=== PATIENT | female | born 1990 | race Caucasian/White ===

== ENCOUNTER → 2019-06-21 | Outpatient (CLI) | payer MEDICAID | END | disposition home or self-care (01) | LOC: XY 07:43 | PROVIDERS: ATTEND Internal Medicine | DX: R00.2 Palpitations (principal); R06.02 Shortness of breath; R07.9 Chest pain, unspecified | CPT/HCPCS: 78582; A9540; A9558 ==

== ENCOUNTER → 2019-08-06 | Outpatient (CLI) | payer MEDICAID ==
[~2019-08-06] MED LIST: ALBUAER3 IN; ALPR1TAB7 PO; BECL80AE11 IN; FURO1TAB33 PO; GABA300C10 PO; METO25TA62 PO; MIRT30TA PO; OMEP20TA PO; SERT-377 PO
[2019-08-06 15:06] VITALS: BP 102/59
[2019-08-06 15:18] VITALS: BP 96/58
--- NOTE | 2019-08-06 15:18 | NUR ---
Pre-Op Discharge Summary: See e-MAR for any medications given for this visit. Pre-op orders received and carried out per MD of EKG, LABS and chest xrays. Patient given a copy of EKG with instructions to go to [facility] out patient for further follow up care.
[2019-08-06 16:29] LABS: Basophils # (auto) 0 uL; Basophils % (auto) 0.5 % (0.0-2.0); Eosinophils # (auto) 0.2 uL; Eosinophils % (auto) 1.9 % (0.0-7.0); Hematocrit 44.4 % (36.0-46.0); Hemoglobin 14.9 g/dL (12.2-16.2); Lymphocytes # (auto) 2.4 uL; Lymphocytes % (auto) 28.2 % (10.0-50.0); Mean Corpuscular Hemoglobin 29.8 pg (28.0-32.0); Mean Corpuscular Hgb Conc. 33.6 g/dL (32.0-36.0); Mean Corpuscular Volume 88.8 fL (80.0-100.0); Monocytes # (auto) 0.6 uL; Monocytes % (auto) 7.3 % (0.0-12.0); Neutrophils # (auto) 5.2 uL; Neutrophils % (auto) 62.1 % (37.0-80.0); Platelet Count (auto) 258 10^3/uL (140-450); Red Cell Distribution Width 13.6 % (11.8-14.3); White Blood Cell 8.4 10^3/uL (4.4-10.8)
[2019-08-06 16:40] LABS: INR 1.02 (0.9-1.15); Partial Thromboplastin Time 27.1 sec (23.64-32.05)
[2019-08-06 17:27] LABS: BUN/Creatinine Ratio 17.3; Calcium 9.1 mg/dL (8.5-10.1); Potassium 4.1 mmol/L (3.5-5.1)
== END | disposition home or self-care (01) ==
LOC: Rad HDHVI 14:52
PROVIDERS: ATTEND Internal Medicine
DX: Z01.812 Encounter for preprocedural laboratory examination (principal); F17.200 Nicotine dependence, unspecified, uncomplicated
CPT/HCPCS: 36415; 71046; 80048; 84702; 85025; 85610; 85730; 93005; G0463

== ENCOUNTER 2019-08-11 08:09 | Inpatient (IN) | payer MEDICAID ==
[~2019-08-11] VITALS: Ht 149.9 cm; Wt 64.3 kg
[2019-08-11] MEDS ORDERED: IOHEXOL 350 MG/ML 100ML IJ ONE ×2 (08:25→08:58)
[2019-08-11] MEDS ORDERED: LIDOCAINE 2%HCL (LOCAL ANESTH.) INJ 20ML MDV ONE (08:25)
[2019-08-11] MEDS ORDERED: ANGIOMAX 250 MG VIAL IV ONE (08:57)
[2019-08-11] MEDS ORDERED: fentaNYL CITRATE 100 MCG/2 ML VL ONE (08:57)
[2019-08-11] MEDS ORDERED: SODIUM CHL 0.9% 0 ML ONE (08:58)
[2019-08-11] MEDS ORDERED: MIDAZOLAM HCL 1MG/1ML-2 ML VIAL ONE ×2 (08:58→09:33)
[2019-08-11] MEDS ORDERED: MIDAZOLAM HCL 1MG/1ML-2 ML VIAL IV ONE (12:00)
[2019-08-11] MEDS ORDERED: LIDOCAINE VISCOUS 2% 15ML UD PO ONE (12:00)
[2019-08-11] MEDS ORDERED: fentaNYL CITRATE 100 MCG/2 ML VL IV ONE (12:00)
[2019-08-11] MEDS ORDERED: MORPHINE SULF INJ 2 MG/ML SYRINGE 1ML IV PRN (16:00)
[2019-08-11] MEDS ORDERED: ONDANSETRON HCL 4 MG/2 ML VIAL IV PRN (16:00)
[2019-08-11] MEDS ORDERED: NITROGLYCERIN 0.4 MG SL TAB SL PRN (16:00)
[2019-08-11] MEDS ORDERED: ACETAMINOPHEN 500 MG TAB PO PRN (16:00)
[2019-08-11] MEDS ORDERED: ALPRAZolam 0.5 MG TAB PO PRN (16:15)
[2019-08-11] MEDS: HYDROcodone-ACET 5/325MG TAB PO PRN ×2 (16:55→20:55)
--- NOTE | 2019-08-11 17:36 | NUR ---
received report from MICHAEL Luong in concrete plant laborer pt s/p left heart cath for transfer to [facility] due to ASD, Kristen is the manager of case management.
--- NOTE | 2019-08-11 17:50 | NUR ---
Telemetry admit from ER MORRISSYDNEY VENEGAS admitted to Telemetry unit after SBAR received. Patient oriented to Manda Valdez, primary RN, unit, room, bed, and unit policies regarding patient care and visiting hours. Patient now on continuous telemetry monitoring, tele box # 67 and telemetry reading on arrival to unit is SINUS TACHYCARDIA AT 103BPM. Patient placed on bedside oxygen, weighed by bedscale and encouraged to call if they need something. All questions and concerns addressed, patient verbalized understanding. Note: PT IS AWAKE AND ALERT, NOTED POST OP DRESSING ON RIGHT GROIN, CLEAN DRY AND INTACT, NO SIGNS OF BLEEDING, NO SIGNS OF DISTRESS AT THIS TIME.WILL CONTINUE TO MONITOR.
[2019-08-11] MEDS ORDERED: ALBUTEROL SULF 2.5 MG/0.5ML(0.5%) NEB SOLN NEB PRN (18:00)
[2019-08-11 18:15] VITALS: BP 107/86
--- NOTE | 2019-08-11 19:35 | NUR ---
Opening Shift Note Assumed care of patient, awake and alert. No S/S of distress/SOB. Patient c/o generalized body pain. Will treat with PRN pain medication. Instructed on POC and to call for assist PRN, will continue to monitor for changes Q1hr and PRN.
[2019-08-11 22:00] VITALS: BP 99/62
[2019-08-11] MEDS ORDERED: BECLOMETHASONE DIPROPIONATE 80 MCG IN SCH (22:00)
[2019-08-11] MEDS: BUDESONIDE (INHALATION) 0.5 MG/2 ML NEB NEB SCH (22:26)
[2019-08-11 22:29] VITALS: BP 107/86
[2019-08-11] MEDS: GABAPENTIN 300 MG CAP PO SCH (23:17)
[2019-08-11] MEDS: SODIUM CHLOR 0.9% PF (SALINE LOCK) 10ML VIAL/SYR IV SCH (23:17)
[2019-08-12 05:00] VITALS: BP 101/57
[2019-08-12] MEDS: SODIUM CHLOR 0.9% PF (SALINE LOCK) 10ML VIAL/SYR IV SCH ×3 (06:37→23:18)
[2019-08-12] MEDS: GABAPENTIN 300 MG CAP PO SCH ×3 (06:37→23:18)
--- NOTE | 2019-08-12 07:30 | NUR ---
Opening Shift Note RECEIVED REPORT FROM NOC RN. Assumed care of patient, awake and alert. No S/S of distress/SOB or pain. BED IN LOWEST, LOCKED POSITION WITH SIDERAILS UP x2 AND CALL LIGHT WITHIN REACH. Instructed on POC and to call for assist PRN, will continue to monitor for changes Q1hr and PRN.
[2019-08-12 08:00] VITALS: BP 102/52
--- NOTE | 2019-08-12 08:16 | NUR ---
Crnp 08/11/19-I received a page from Cherise in the laborer heading regarding order to transfer this patient to [facility]. I spoke with nurse Manda who would be receiving the patient and asked her to fax clinical information to [facility].
--- NOTE | 2019-08-12 08:24 | NUR ---
I faxed transfer order to [facility] and IE.
--- NOTE | 2019-08-12 08:47 | NUR ---
I called [facility] and spoke with Payment Processor Jazmyn [phone] regarding the transfer order, she will generate the authorization numbers and give me a call back.
--- NOTE | 2019-08-12 08:56 | NUR ---
I received a call from Margie at [facility] providing me with authorization numbers-for [facility] auth number is [id number], and auth for [facility] is [id number]. I called [facility] transfer center [phone] and spoke with Shawna-provided her with [facility] auth number, they have accepted this patient-she will call me when a bed becomes available. I spoke with patient's primary nurse Anival to update him on the status of the transfer-as well as to ask him to make sure the chart is copied and everything placed on a disc including yesterday's LHC.
--- NOTE | 2019-08-12 09:06 | NUR ---
I placed [facility] on will call (spoke with Natividad) pending transfer to [facility].
[2019-08-12] MEDS: MIRTAZAPINE 30 MG TAB PO SCH (09:57)
[2019-08-12] MEDS: FUROSEMIDE 20 MG TAB PO SCH (09:58)
[2019-08-12] MEDS: SERTRALINE HCL 50 MG TAB PO SCH (09:58)
[2019-08-12] MEDS: PANTOPRAZOLE 40 MG TAB PO SCH (09:58)
[2019-08-12] MEDS: METOPROLOL SUCCINATE XL 50 MG TAB PO SCH (09:59)
[2019-08-12 12:00] VITALS: BP 107/61
[2019-08-12] MEDS: HYDROcodone-ACET 5/325MG TAB PO PRN ×2 (13:19→19:22)
--- NOTE | 2019-08-12 15:58 | NUR ---
I called [facility] transfer center [phone] and spoke with Shawna-she said they are still waiting on a bed for this patient-they will call the nurse's station when one becomes available. [facility] is on will-call.
[2019-08-12 16:45] VITALS: BP 106/63
[2019-08-12 22:00] VITALS: BP 108/65
[2019-08-12] MEDS: BUDESONIDE (INHALATION) 0.5 MG/2 ML NEB NEB SCH (22:13)
[2019-08-13 05:00] VITALS: BP 116/61
[2019-08-13] MEDS: HYDROcodone-ACET 5/325MG TAB PO PRN ×3 (06:39→22:14)
[2019-08-13] MEDS: SODIUM CHLOR 0.9% PF (SALINE LOCK) 10ML VIAL/SYR IV SCH ×3 (06:39→22:14)
[2019-08-13] MEDS: GABAPENTIN 300 MG CAP PO SCH ×3 (06:39→22:14)
--- NOTE | 2019-08-13 07:30 | NUR ---
Opening Shift Note RECEIVED REPORT FROM NOC RN. Assumed care of patient, awake and alert. PATIENT ON OXYGEN AT 3 LPM VIA NASAL CANNULA WITH no S/S of distress/SOB or pain. BED IN LOWEST, LOCKED POSITION WITH SIDERAILS UP x2 AND CALL LIGHT WITHIN REACH. Instructed on POC and to call for assist PRN, will continue to monitor for changes Q1hr and PRN.
[2019-08-13 09:00] VITALS: BP 95/56
[2019-08-13] MEDS: MIRTAZAPINE 30 MG TAB PO SCH (09:46)
[2019-08-13] MEDS: SERTRALINE HCL 50 MG TAB PO SCH (09:46)
[2019-08-13] MEDS: PANTOPRAZOLE 40 MG TAB PO SCH (09:47)
[2019-08-13] MEDS: FUROSEMIDE 20 MG TAB PO SCH (09:47)
[2019-08-13] MEDS: METOPROLOL SUCCINATE XL 50 MG TAB PO SCH (09:51)
--- NOTE | 2019-08-13 10:02 | NUR ---
I spoke with Shawna at the [facility] transfer center [phone]-she said they are still waiting for a bed to open up for this patient.
[2019-08-13] MEDS: BUDESONIDE (INHALATION) 0.5 MG/2 ML NEB NEB SCH ×2 (11:07→19:20)
[2019-08-13 13:00] VITALS: BP 111/59
--- NOTE | 2019-08-13 16:47 | NUR ---
I called [facility] transfer center [phone] and spoke with Shawna, she said they are still waiting for a bed to become available for this patient. [facility] remains on will call (I called and spoke with Sina).
[2019-08-13 17:00] VITALS: BP 101/60
--- NOTE | 2019-08-13 20:50 | NUR ---
Called [facility], SBAR given to Aaliyah RODRIGUEZ. All questions and concerns answered.
--- NOTE | 2019-08-13 21:00 | NUR ---
Called [facility], accepting MD is Dr. Bond.
[2019-08-13 21:08] VITALS: BP 119/69
--- NOTE | 2019-08-13 21:21 | NUR ---
[facility] called and all information given. ETA is in 2 hours. Patient is aware of order picker/assembler time.
--- NOTE | 2019-08-13 23:50 | NUR ---
[facility] is at bedside for transfer. production administrator removed. All wrist bands removed. All paperwork and belongings are with the patient. VSS. No complaints of pain.
--- NOTE | 2019-08-13 23:59 | NUR ---
Discharge Transfers Patient is being transferred to [facility]. Patient is to follow up with accepting doctor Varun at the receiving facility.
== END 2019-08-13 23:58 | disposition short-term general hospital (02) | DRG 192 ==
LOC: CATH 08:09 → TELE-WESTW 08:10
PROVIDERS: ADMIT Internal Medicine; ATTEND Internal Medicine
PROC: 4A023N8 Measurement of Cardiac Sampling and Pressure, Bilateral, Percutaneous Approach (ICD-10-PCS; principal; 2019-08-11)
PROC: B2111ZZ Fluoroscopy of Multiple Coronary Arteries using Low Osmolar Contrast (ICD-10-PCS; 2019-08-11)
PROC: B2151ZZ Fluoroscopy of Left Heart using Low Osmolar Contrast (ICD-10-PCS; 2019-08-11)
DX: I27.21 Secondary pulmonary arterial hypertension (principal); I11.0 Hypertensive heart disease with heart failure; I50.9 Heart failure, unspecified; Q21.1 Atrial septal defect; J45.909 Unspecified asthma, uncomplicated; F41.9 Anxiety disorder, unspecified; F17.210 Nicotine dependence, cigarettes, uncomplicated
CPT/HCPCS: 93306; 93460; 94640; 99152; 99153; C1751; G0378; J2250

== ENCOUNTER 2020-07-01 09:12 | Inpatient (IN) | payer MEDICARE, MEDICAID ==
[~2020-07-01] VITALS: Ht 149.9 cm; Wt 53.6 kg
[~2020-07-01 09:12] MED LIST changes: -METO25TA62 PO; +METO25TA93 PO
[2020-07-01 10:32] LABS: Urine Bacteria FEW /hpf (None Seen); Urine Blood Negative /uL (Negative); Urine Mucus FEW (None Seen); Urine Specific Gravity 1.016 (1.001-1.035); Urine WBC 7 /hpf (0 - 5)
[2020-07-01] MEDS ORDERED: SODIUM CHLORIDE 0.9% 1,000 ML IVB ONE (13:00)
[2020-07-01] MEDS ORDERED: cefTRIAXone 1GM/50ML D5W 50 ML IV ONE (13:00)
[2020-07-01 13:37] LABS: Basophils % (auto) 0.4 % (0.0-2.0); Eosinophils # (auto) 0 10 ^3/uL (0-0.8); Monocytes # (auto) 0.7 10 ^3/uL (0-1.3); Red Cell Distribution Width 15.3 % (11.8-14.3)
[2020-07-01 13:39] LABS: Basophils # (auto) 0.1 10 ^3/uL (0-0.2); Eosinophils % (auto) 0.1 % (0.0-7.0); Hematocrit 53.4 % (36.0-46.0); Hemoglobin 17.7 g/dL (12.2-16.2); Lymphocytes # (auto) 1.2 10 ^3/uL (0.4-5.4); Lymphocytes % (auto) 9.2 % (10.0-50.0); Mean Corpuscular Hemoglobin 30.2 pg (28.0-32.0); Mean Corpuscular Hgb Conc. 33.2 g/dL (32.0-36.0); Mean Corpuscular Volume 91.1 fL (80.0-100.0); Monocytes % (auto) 5.2 % (0.0-12.0); Neutrophils # (auto) 10.7 10 ^3/uL (1.6-8.6); Neutrophils % (auto) 85.1 % (37.0-80.0); Nucleated Red Blood Cells % 0.2 %; Platelet Count (auto) 181 10^3/uL (140-450); Red Blood Cells 5.87 10^6/uL (4.0-5.20); White Blood Cell 12.6 10^3/uL (4.4-10.8)
[2020-07-01 13:53] LABS: Albumin 3.7 g/dL (3.4-5.0); BUN/Creatinine Ratio 7.3; Calcium 8.7 mg/dL (8.5-10.1); Magnesium 1.8 mg/dL (1.6-2.6)
[2020-07-01 13:56] LABS: Bilirubin, Total 0.8 mg/dL (0.2-1.0); Total Protein 7.4 g/dL (6.4-8.2)
[2020-07-01 15:01] LABS: INR 1.24 (0.9-1.15); Partial Thromboplastin Time 28.5 sec (23.0-31.2)
[2020-07-01 15:17] LABS: Alcohol, Urine < 3.0 mg/dL (0-10); Amphetamine Screen, Urine POSITIVE (NEGATIVE); Barbiturate Scree,Urine NEGATIVE (NEGATIVE); Benzodiazephine Screen, Urine POSITIVE (NEGATIVE); Cannabinoid Screen, Urine NEGATIVE (NEGATIVE); Cocaine Screen, Urine NEGATIVE (NEGATIVE); Opiate Scree,Urine NEGATIVE (NEGATIVE); Phencyclidine Screen, Urine NEGATIVE (NEGATIVE)
[2020-07-01] MEDS ORDERED: ACETAMINOPHEN 325 MG TAB PO ONE (15:45)
[2020-07-01] MEDS ORDERED: ACETAMINOPHEN 500 MG TAB PO PRN (16:30)
[2020-07-01 16:50] LABS: Magnesium 1.9 mg/dL (1.6-2.6)
[2020-07-01 16:59] LABS: CRP High Sensitivity 1.04 mg/dL (< 0.3)
[2020-07-01 19:50] VITALS: BP 107/61
--- NOTE | 2020-07-01 19:50 | NUR ---
Telemetry admit from ER to [facility]- Unit SYDNEY MORRIS admitted to Telemetry unit. Patient oriented to LARS LIN, primary RN, unit, room, bed, and unit policies regarding patient care and visiting hours. Patient now on continuous telemetry monitoring, tele box #8 and telemetry reading on arrival to unit is sinus rhythm. Patient is alert and oriented x4. Patient denies pain or shortness of breath at this time. Patient placed on 5L/min via NC, spo2: 90% at this time. No sign/symptoms of distress noted or verbalized at this time. Instructed on plan of care and encouraged patient to call for assistance as needed, patient verbalized understanding. Bed is locked in lowest position, side rails x 2 are up, and call light is within reach.
[2020-07-01 21:55] VITALS: BP 110/66
[2020-07-01] MEDS ORDERED: ALPRAZolam 0.5 MG TAB PO SCH (22:00)
[2020-07-01] MEDS: ALBUTEROL SULF HFA 90MCG INH 200DOSE IN SCH (22:00)
--- NOTE | 2020-07-01 22:09 | NUR ---
Hospitalist paged regarding diet order. Awaiting call back.
--- NOTE | 2020-07-01 22:15 | NUR ---
Hospitalist Returned Call RE: Diet Order Hospitalist returned call regarding diet order. Orders received for a cardiac diet. Order read back and verified. Will carry out order as received.
[2020-07-01] MEDS: GABAPENTIN 300 MG CAP PO SCH (22:38)
--- NOTE | 2020-07-01 22:38 | NUR ---
Respiratory note: PT SEEN AND ASSESSED AT THIS TIME. NO RESPIRATORY DISTRESS NOTED. HR 101 RR 16 SP02 97% ON 5L NASAL CANNULA. TITRATED DOWN TO 4L.
[2020-07-02 05:00] VITALS: BP 107/62
--- NOTE | 2020-07-02 05:30 | NUR ---
Incentive Spirometer Incentive spirometer provided to patient. Educated patient on the purpose of the incentive spirometer, how to use it, and the frequency, patient verbalized understanding.
[2020-07-02] MEDS: GABAPENTIN 300 MG CAP PO SCH ×3 (05:48→21:31)
[2020-07-02] MEDS: ALBUTEROL SULF HFA 90MCG INH 200DOSE IN SCH (06:00)
[2020-07-02 07:04] LABS: Basophils # (auto) 0 10 ^3/uL (0-0.2); Basophils % (auto) 0.4 % (0.0-2.0); Eosinophils # (auto) 0.1 10 ^3/uL (0-0.8); Eosinophils % (auto) 0.5 % (0.0-7.0); Hematocrit 49.7 % (36.0-46.0); Hemoglobin 16.5 g/dL (12.2-16.2); Lymphocytes # (auto) 1.6 10 ^3/uL (0.4-5.4); Lymphocytes % (auto) 14.5 % (10.0-50.0); Mean Corpuscular Hemoglobin 30.3 pg (28.0-32.0); Mean Corpuscular Hgb Conc. 33.2 g/dL (32.0-36.0); Mean Corpuscular Volume 91.1 fL (80.0-100.0); Monocytes # (auto) 0.6 10 ^3/uL (0-1.3); Monocytes % (auto) 5.6 % (0.0-12.0); Neutrophils # (auto) 8.7 10 ^3/uL (1.6-8.6); Platelet Count (auto) 163 10^3/uL (140-450); Red Blood Cells 5.45 10^6/uL (4.0-5.20); Red Cell Distribution Width 15.1 % (11.8-14.3)
[2020-07-02 07:18] LABS: Albumin 2.7 g/dL (3.4-5.0); BUN/Creatinine Ratio 8.3; Calcium 8.4 mg/dL (8.5-10.1); Potassium 3.8 mmol/L (3.5-5.1)
[2020-07-02 07:21] LABS: Bilirubin, Total 0.6 mg/dL (0.2-1.0)
[2020-07-02 08:00] VITALS: BP 113/76
--- NOTE | 2020-07-02 08:00 | NUR ---
Patient 02 saturating at 93% currently on 8L oxymizer.
[2020-07-02 09:06] VITALS: BP 113/76
[2020-07-02] MEDS: ZINC SULFATE 220mg CAP or TAB PO SCH (09:16)
[2020-07-02] MEDS: cefTRIAXone 1GM/50ML D5W 50 ML IV SCH (09:16)
[2020-07-02] MEDS: PANTOPRAZOLE 40 MG TAB PO SCH (09:17)
[2020-07-02] MEDS: SERTRALINE HCL 50 MG TAB PO SCH (09:18)
[2020-07-02] MEDS: ASCORBIC ACID 1,000 MG TAB PO SCH (09:18)
[2020-07-02] MEDS: METOPROLOL SUCCINATE XL 50 MG TAB PO SCH (09:18)
[2020-07-02] MEDS ORDERED: MIRTAZAPINE 30 MG TAB PO SCH (10:00)
[2020-07-02] MEDS ORDERED: FUROSEMIDE 20 MG TAB PO SCH (10:00)
--- NOTE | 2020-07-02 10:00 | NUR ---
Patient desated to mid 70's when going to bedside commode. Patient 02 increased to 10L after returning to bed from bedside commode. Patient 02 now 91%. Will continue to monitor
--- NOTE | 2020-07-02 10:45 | NUR ---
Patient 02 at 88% on 10L oxymizer. Increased 02 to 12L oxymizer, patient saturation now 91%. Will continue to monitor.
--- NOTE | 2020-07-02 11:10 | NUR ---
Kwame Garay on unit
[2020-07-02] MEDS ORDERED: DOXYCYCLINE 100MG/250ML 250 ML IV SCH (11:15)
[2020-07-02] MEDS ORDERED: FUROSEMIDE 20 MG/2 ML VIAL IV ONE (11:15)
--- NOTE | 2020-07-02 11:22 | NUR ---
Covid Result Informed photoengraving finisherTatum RODRIGUEZ, patient is covid negative.
[2020-07-02] MEDS: AZITHROMYCIN 500MG/ 250ML 250 ML IV SCH (12:00)
--- NOTE | 2020-07-02 12:55 | NUR ---
IV removal Patient complaining of pain at IV site. IV DC'd with clean sterile technique, catheter fully intact. Pressure dressing applied to site. Patient tolerated well.
--- NOTE | 2020-07-02 13:00 | NUR ---
IV insertion IV access obtained, via clean sterile technique by inserting 22 gauge catheter to the right forearm after 1 attempt. IV secured properly. No trauma to site. Patient tolerated well.
[2020-07-02 13:12] VITALS: BP 102/66
[2020-07-02] MEDS: ALPRAZolam 0.5 MG TAB PO PRN (13:28)
--- NOTE | 2020-07-02 13:59 | NUR ---
COMMUNICATION ORDER PER CHPAIN PATRICIO, IF PATIENT REQUIRES 10 L OXYGEN, TRANSFER TO [facility]. LINE PRODUCTION COOK ALSO NOTIFIED
[2020-07-02] MEDS ORDERED: ALBUTEROL SULF 2.5 MG/0.5ML(0.5%) NEB SOLN NEB PRN (14:00)
--- NOTE | 2020-07-02 14:00 | NUR ---
Received orders from CHAPIN Puente for breathing treatments. Order carried out as received Addendum: 07/02/20 at 1449 by CHRISS LINDSAY RN RN Informed Kwame patient currently on L
--- NOTE | 2020-07-02 14:15 | NUR ---
Patient 02 at 89% on 13L oxymizer, patient placed on nonrebreather at 15L. No signs of resp distress from patient. Current 02 91%. Will continue to monitor.
--- NOTE | 2020-07-02 15:00 | NUR ---
Informed RT patient is on 15L nonrebreather.
--- NOTE | 2020-07-02 15:08 | NUR ---
Provided update on patients status to marble installation helper
--- NOTE | 2020-07-02 16:19 | NUR ---
Informed Kwame patient is currently on 14L nonrebreather saturating at 93%. No resp distress. Kwame is ok with patient staying on floor and not moving to [facility] as long as there are no signs of resp distress. Will inform lining maker hand
--- NOTE | 2020-07-02 17:00 | NUR ---
Informed charge nurse patient can move to floor and not [facility]. Per Charge, patient will be moved tonight.
[2020-07-02 17:15] VITALS: BP 111/68
[2020-07-02] MEDS: ALBUTEROL SULF 2.5 MG/0.5ML(0.5%) NEB SOLN NEB SCH ×3 (18:00→23:47)
--- NOTE | 2020-07-02 19:40 | NUR ---
Opening Shift Note Assumed care of patient, awake and alert x4. Patient is on 14L/min nonrebreather, SPO2: 93% at this time. Patient denies pain or shortness of breath at this time. No sign/symptoms of distress noted or verbalized at this time. Instructed on plan of care and encouraged patient to call for assistance as needed, patient verbalized understanding. Bed is locked in lowest position, side rails x 2 are up, and call light is within reach.
--- NOTE | 2020-07-02 19:50 | NUR ---
Oxygen Saturation Assisted patient to the toilet and back to bed. Patient's oxygen saturation was sustaining between 86-89%. Patient denied shortness of breath at this time. No use of accessory muscles noted at this time. No sign/symptoms of distress noted at this time. Oxygen increased to 15L/min via nonrebreather and encouraged patient to take deep breaths, oxygen saturation increased to 90% on 15L/min nonrebreather. Patient is currently sitting in bed with even and unlabored respirations. SPO2: 92% via 15L/min nonrebreather. No sign/symptoms of distress noted or verbalized at this time. Bed is locked in lowest position, side rails x 2 are up, and call light is within reach. Will continue care.
--- NOTE | 2020-07-02 20:10 | NUR ---
Charge nurse updated on patient status.
--- NOTE | 2020-07-02 21:17 | NUR ---
Report Given Report given to Sherry RODRIGUEZ.
[2020-07-02] MEDS: MIRTAZAPINE 30 MG TAB PO SCH (21:31)
--- NOTE | 2020-07-02 21:47 | NUR ---
Transfer to [place] Patient transferred from room 237 to 217B with all personal belongings via wheelchair on 15L/min nonrebreather, accompanied by MICHAEL Powell. Even and unlabored respirations noted upon departure. No sign/symptoms of distress noted or verbalized at time of departure. Patient care endorsed to Sherry RODRIGUEZ.
--- NOTE | 2020-07-02 21:48 | NUR ---
Arrived at [facility] transferred from [facility] to [facility] after SBAR received via wheelchair. Patient oriented to CHULA SHAIKH RN primary RN, unit, room, bed, and unit policies regarding patient care and visiting hours. Patient on 15L nonrebreather, O2 sat at 90% upon arrival. No signs of symptoms of pain or respiratory distress noted. Safety measures maintained by keeping the bed locked in lowest position, 2 side rails up, personal items and call light within reach. Patient weighed by bed scale and encouraged to call if they need something. All questions and concerns addressed, patient verbalized understanding. Will monitor every hour and as needed.
[2020-07-02 22:00] VITALS: BP 112/71
--- NOTE | 2020-07-02 23:30 | NUR ---
Respiratory note: PT REFUSED BOTH MED NEB TXS, PT ON 15L NON REBREATHER SPO2 92%, RR 18, HR 78. PT IS SLEEPING AND STATED SHE FEELS FINE AND WILL TAKE HER TXS TOMORROW. ADVISED PT TO CALL IF TX IS NEEDED.
--- NOTE | 2020-07-03 02:20 | NUR ---
Respiratory note: PT TAKEN OFF NRB AND PLACED ON 10L SIMPLE MASK. SPO2 94%, RR 28, HR 72. PT APPEARS TO TOLERATE WELL. RN AWARE.
[2020-07-03 05:00] VITALS: BP 96/51
[2020-07-03] MEDS: ALBUTEROL SULF 2.5 MG/0.5ML(0.5%) NEB SOLN NEB SCH ×3 (06:00→19:21)
[2020-07-03] MEDS: GABAPENTIN 300 MG CAP PO SCH ×3 (06:04→22:00)
[2020-07-03 06:16] LABS: Basophils # (auto) 0 10 ^3/uL (0-0.2); Basophils % (auto) 0.4 % (0.0-2.0); Eosinophils # (auto) 0.2 10 ^3/uL (0-0.8); Eosinophils % (auto) 1.9 % (0.0-7.0); Hematocrit 51.3 % (36.0-46.0); Hemoglobin 17.3 g/dL (12.2-16.2); Lymphocytes # (auto) 2.1 10 ^3/uL (0.4-5.4); Lymphocytes % (auto) 22.6 % (10.0-50.0); Mean Corpuscular Hemoglobin 30.4 pg (28.0-32.0); Mean Corpuscular Hgb Conc. 33.8 g/dL (32.0-36.0); Mean Corpuscular Volume 89.9 fL (80.0-100.0); Monocytes # (auto) 0.7 10 ^3/uL (0-1.3); Monocytes % (auto) 7.7 % (0.0-12.0); Neutrophils # (auto) 6.3 10 ^3/uL (1.6-8.6); Neutrophils % (auto) 67.4 % (37.0-80.0); Nucleated Red Blood Cells % 0.1 %; Platelet Count (auto) 187 10^3/uL (140-450); Red Cell Distribution Width 14.9 % (11.8-14.3); White Blood Cell 9.4 10^3/uL (4.4-10.8)
[2020-07-03 06:41] LABS: BUN/Creatinine Ratio 14.1; Calcium 8.8 mg/dL (8.5-10.1)
--- NOTE | 2020-07-03 07:40 | NUR ---
Opening Shift Note Assumed care of patient, awake and alert. No S/S of distress, SOB with activity. Denies pain. Instructed on POC and to call for assist PRN, will continue to monitor for changes Q1hr and PRN.
[2020-07-03 08:00] VITALS: BP 102/71
[2020-07-03] MEDS: PANTOPRAZOLE 40 MG TAB PO SCH (11:08)
[2020-07-03] MEDS: ZINC SULFATE 220mg CAP or TAB PO SCH (11:08)
[2020-07-03] MEDS: METOPROLOL SUCCINATE XL 50 MG TAB PO SCH (11:09)
[2020-07-03] MEDS: cefTRIAXone 1GM/50ML D5W 50 ML IV SCH (11:10)
[2020-07-03] MEDS: ASCORBIC ACID 1,000 MG TAB PO SCH (11:10)
[2020-07-03] MEDS: SERTRALINE HCL 50 MG TAB PO SCH (11:10)
[2020-07-03] MEDS: FUROSEMIDE 20 MG/2 ML VIAL IV SCH (11:11)
[2020-07-03] MEDS: AZITHROMYCIN 500MG/ 250ML 250 ML IV SCH (11:11)
[2020-07-03 12:00] VITALS: BP 105/56
--- NOTE | 2020-07-03 14:57 | NUR ---
Respiratory note: CRITICAL VALUE ON ABG REPORTED TO DR. BREWSTER AT THIS TIME. ABG RESULTS SHOWED PO2 OF 39 ON ROOM AIR. SPOKE TO DR. BREWSTER REGARDING CRITICAL VALUE.
--- NOTE | 2020-07-03 15:08 | NUR ---
Respiratory note: PATIENT PLACED ON 15LPM NRB FOR LOW SPO2. SHE WAS FOUND ON 4LPM NASAL CANNULA WITH SPO2 OF 80%. ROOM AIR ABG WAS DRAWN AND SPO2 WAS 76% AT THAT TIME. PATIENT WAS PLACED ON 15LPM NRB POST R/A ABG DRAW AND SPO2 SLOWLY INCREASED FROM 76% TO 88%. DR. BREWSTER MADE AWARE OF LOW SPO2, LOW RESERVES, AND CHANGE TO NRB MASK.
[2020-07-03 17:00] VITALS: BP 95/53
--- NOTE | 2020-07-03 21:16 | NUR ---
UPDATED FAMILY ABRAHAM HAYES REGARDING PATIENT PLAN OF CARE, PATIENT STATUS.
--- NOTE | 2020-07-03 21:47 | NUR ---
PATIENT O2SAT 87% ON 15L NONREBREATHER IN NO APPARENT RESPIRATORY DISTRESS OR SOB, LUNGS CLEAR AND DIMINISHED AT BASES. PAGED RT CURRENT RESPIRATORY STATUS AND PATIENT NORMAL SATURATIONS AT HOME MID 80S, ALL PROVIDERS AWARE PER DR BREWSTER TO PLACE PATIENT ON NONREBREATHER. Addendum: 07/03/20 at 2208 by MARITO CLANCY RN RN RECHECKED PATIENT O2SAT 89% 15L NONREBREATHER. PATIENT DENIES ANY RESPIRATORY DISTRESS OR SOB. INFORMED PATIENT TO LET US KNOW IF THERE IS ANY CHANGE IN HER STATUS PATIENT VERBALIZES UNDERSTANDING NO QUESTIONS ASKED.
[2020-07-03 22:00] VITALS: BP 100/58
[2020-07-03] MEDS: MIRTAZAPINE 30 MG TAB PO SCH (22:01)
[2020-07-04] MEDS: ALBUTEROL SULF 2.5 MG/0.5ML(0.5%) NEB SOLN NEB SCH ×4 (01:01→19:24)
[2020-07-04 05:00] VITALS: BP 96/63
[2020-07-04] MEDS: GABAPENTIN 300 MG CAP PO SCH ×3 (06:00→21:37)
[2020-07-04 06:19] LABS: Basophils # (auto) 0 10 ^3/uL (0-0.2); Basophils % (auto) 0.4 % (0.0-2.0); Eosinophils # (auto) 0.1 10 ^3/uL (0-0.8); Eosinophils % (auto) 1.7 % (0.0-7.0); Hematocrit 50.4 % (36.0-46.0); Hemoglobin 16.9 g/dL (12.2-16.2); Lymphocytes # (auto) 2.6 10 ^3/uL (0.4-5.4); Lymphocytes % (auto) 31.6 % (10.0-50.0); Mean Corpuscular Hemoglobin 30.3 pg (28.0-32.0); Mean Corpuscular Hgb Conc. 33.5 g/dL (32.0-36.0); Mean Corpuscular Volume 90.4 fL (80.0-100.0); Monocytes # (auto) 0.5 10 ^3/uL (0-1.3); Monocytes % (auto) 6.6 % (0.0-12.0); Neutrophils # (auto) 4.9 10 ^3/uL (1.6-8.6); Neutrophils % (auto) 59.7 % (37.0-80.0); Nucleated Red Blood Cells % 0.1 %; Platelet Count (auto) 224 10^3/uL (140-450); Red Blood Cells 5.57 10^6/uL (4.0-5.20); White Blood Cell 8.2 10^3/uL (4.4-10.8)
[2020-07-04 06:35] LABS: Potassium 3.9 mmol/L (3.5-5.1)
[2020-07-04 06:39] LABS: BUN/Creatinine Ratio 22.5; Calcium 8.3 mg/dL (8.5-10.1)
[2020-07-04 08:38] VITALS: BP 101/63
[2020-07-04] MEDS: METOPROLOL SUCCINATE XL 50 MG TAB PO SCH (09:17)
[2020-07-04] MEDS: cefTRIAXone 1GM/50ML D5W 50 ML IV SCH (09:20)
[2020-07-04] MEDS: SERTRALINE HCL 50 MG TAB PO SCH (09:21)
[2020-07-04] MEDS: FUROSEMIDE 20 MG/2 ML VIAL IV SCH (09:21)
[2020-07-04] MEDS: PANTOPRAZOLE 40 MG TAB PO SCH (09:21)
[2020-07-04] MEDS: AZITHROMYCIN 500MG/ 250ML 250 ML IV SCH (09:21)
[2020-07-04] MEDS: ZINC SULFATE 220mg CAP or TAB PO SCH (09:26)
[2020-07-04] MEDS: ASCORBIC ACID 1,000 MG TAB PO SCH (09:27)
[2020-07-04] MEDS: ALPRAZolam 0.5 MG TAB PO PRN ×2 (11:05→21:38)
--- NOTE | 2020-07-04 12:08 | NUR ---
Nutrition Assessment Notes Please refer to link for full assessment notes. Est Energy needs: 4211-1150 kcals (25-30 kcal/kgBW) Est Protein needs: 43-54 gms/day (0.8-1.0 gm/kgBW) Will continue to monitor and reassess prn. Addendum: 07/04/20 at [address] Amended: Links added.
[2020-07-04] MEDS ORDERED: ONDANSETRON HCL 4 MG/2 ML VIAL IV PRN (12:15)
[2020-07-04 13:00] VITALS: BP 99/63
--- NOTE | 2020-07-04 15:49 | NUR ---
PT 02 SAT 88% ON 15 L NRB. CONTINUES TO USE NRB AT 15 L, REPLACING WITH NC AT 5 L FOR MEALTIMES. IN NO APPARENT DISTRESS. DENIES SOB. MONITORING CLOSELY.
--- NOTE | 2020-07-04 15:58 | NUR ---
I faxed transfer order to [facility].
--- NOTE | 2020-07-04 16:23 | NUR ---
I called [facility] ([phone]) and spoke with Hugh-placed them on will call pending transfer to [facility]. I faxed the Medicare PCS form to [facility].
--- NOTE | 2020-07-04 16:38 | NUR ---
PULSE OX 82% ON 15 L NRB. PT DENIES SOB OR PAIN. RESTING COMFORTABLY. WILL CONTINUE TO MONITOR.
[2020-07-04] MEDS: SUCRALFATE 1 GM/10 ML ORAL SUSP GT SCH ×2 (16:55→21:37)
[2020-07-04 17:00] VITALS: BP 88/56
--- NOTE | 2020-07-04 17:13 | NUR ---
FAXED COVID RESULTS TO GENOVEVA AT [facility]. [phone].
--- NOTE | 2020-07-04 19:40 | NUR ---
RECEIVED PATIENT IN BED, AAOX4. NO DISTRESS NOTED. ON 15 LPM VIA NON RM. PATIENT APPEARED COMFORTABLE. PATIENT IS TACHYPNEIC. WILL KEEP AN EYE ON PATIENT. WILL MONITOR CLOSELY. MD IS AWARE THAT PATIENT IS ON A NRM AT 15LPM. AFEBRILE. PATIENT HAS BEEN RECENTLY TESTED NEGATIVE FOR COVID. POCS DISCUSSED WITH PATIENT AND SHOWED UNDERSTANDING. BED KEPT ON LOWEST POSITION. SIDE RAILS UP. CALL LIGHT/TABLE IN REACH. KEPT COMFORTABLE.
[2020-07-04 21:16] VITALS: BP 88/56
[2020-07-04] MEDS: MIRTAZAPINE 30 MG TAB PO SCH (21:37)
[2020-07-04] MEDS: CARVEDILOL 3.125 MG TAB PO SCH (21:38)
[2020-07-04 22:00] VITALS: BP 107/68
--- NOTE | 2020-07-05 | NUR ---
PATIENT CONTINUED TO BE RESTING IN BED. NO DISTRESS NOTED. O2 SAT= 88% WITH 15 LPM VIA NRM. WILL CONTINUE TO MONITOR.
[2020-07-05] MEDS: ALBUTEROL SULF 2.5 MG/0.5ML(0.5%) NEB SOLN NEB SCH ×3 (00:38→12:44)
--- NOTE | 2020-07-05 02:00 | NUR ---
PATIENT IS ASLEEP. NO DISTRESS NOTED. WILL CONTINUE TO MONITOR.
[2020-07-05] MEDS: SUCRALFATE 1 GM/10 ML ORAL SUSP GT SCH ×2 (05:39→11:30)
[2020-07-05] MEDS: GABAPENTIN 300 MG CAP PO SCH (05:39)
[2020-07-05 05:48] VITALS: BP 100/60
[2020-07-05 06:56] LABS: Potassium 3.9 mmol/L (3.5-5.1)
[2020-07-05 06:57] LABS: Basophils # (auto) 0.1 10 ^3/uL (0-0.2); Basophils % (auto) 0.7 % (0.0-2.0); Eosinophils # (auto) 0.2 10 ^3/uL (0-0.8); Eosinophils % (auto) 2.1 % (0.0-7.0); Hematocrit 50.8 % (36.0-46.0); Hemoglobin 17.2 g/dL (12.2-16.2); Lymphocytes # (auto) 3.2 10 ^3/uL (0.4-5.4); Lymphocytes % (auto) 37.4 % (10.0-50.0); Mean Corpuscular Hemoglobin 30.4 pg (28.0-32.0); Mean Corpuscular Hgb Conc. 33.9 g/dL (32.0-36.0); Mean Corpuscular Volume 89.7 fL (80.0-100.0); Monocytes # (auto) 0.5 10 ^3/uL (0-1.3); Monocytes % (auto) 5.5 % (0.0-12.0); Neutrophils # (auto) 4.7 10 ^3/uL (1.6-8.6); Neutrophils % (auto) 54.3 % (37.0-80.0); Nucleated Red Blood Cells % 0.1 %; Platelet Count (auto) 231 10^3/uL (140-450); Red Blood Cells 5.66 10^6/uL (4.0-5.20); Red Cell Distribution Width 14.7 % (11.8-14.3); White Blood Cell 8.6 10^3/uL (4.4-10.8)
[2020-07-05 07:02] LABS: BUN/Creatinine Ratio 22.9; Calcium 8.9 mg/dL (8.5-10.1)
[2020-07-05] MEDS: cefTRIAXone 1GM/50ML D5W 50 ML IV SCH (08:27)
--- NOTE | 2020-07-05 08:54 | NUR ---
I called [facility] Transfer Center and spoke with [id number] COVID PCR test result (previously faxed yesterday) as requested.
[2020-07-05 09:00] VITALS: BP 97/68
[2020-07-05] MEDS: CARVEDILOL 3.125 MG TAB PO SCH (09:30)
[2020-07-05] MEDS: FUROSEMIDE 20 MG/2 ML VIAL IV SCH (09:36)
[2020-07-05] MEDS: AZITHROMYCIN 500MG/ 250ML 250 ML IV SCH (09:40)
[2020-07-05] MEDS: ZINC SULFATE 220mg CAP or TAB PO SCH (09:41)
[2020-07-05] MEDS: PANTOPRAZOLE 40 MG TAB PO SCH (09:41)
[2020-07-05] MEDS: SERTRALINE HCL 50 MG TAB PO SCH (09:41)
[2020-07-05] MEDS: ASCORBIC ACID 1,000 MG TAB PO SCH (10:00)
[2020-07-05] MEDS ORDERED: METOPROLOL SUCCINATE XL 50 MG TAB PO SCH (10:00)
--- NOTE | 2020-07-05 10:14 | NUR ---
I received a call from [facility] Transfer [facility] said they have everything they need, Dr. Bond is accepting, they are just waiting for a bed-she will call me when one becomes available.
--- NOTE | 2020-07-05 12:21 | NUR ---
PULSE OX 82%, ASYMPTOMATIC. DR MARINO AWARE. PLACED ON OXYMIZER AT 12 L. MONITORING CLOSELY.
[2020-07-05 13:00] VITALS: BP 96/55
--- NOTE | 2020-07-05 14:17 | NUR ---
Patient will be going to [facility] [address] Room 7312 bed 1-nurse to call report to [phone], accepting MD is Dr. Bond. I called [facility] and spoke with Sina, fruit or nut picker time set for 1530-nurse Renea made aware (I requested that she have chart copied, and all radiology procedures placed on a disc including ECHO).
[2020-07-05 14:20] VITALS: BP 96/55
--- NOTE | 2020-07-05 15:21 | NUR ---
REPORT CALLED TO ES LOERA AT [facility] [phone].
--- NOTE | 2020-07-05 16:41 | NUR ---
REPORT GIVEN TO TRANSPORT TEAM, PT TRANSPORTED FROM FACILITY AT APPROX. 1640.
== END 2020-07-05 16:40 | disposition short-term general hospital (02) | DRG 871 ==
LOC: ER 09:12 → TELE 09:13 → TELE-EAST 19:50 → TELE-CENTR 07-02 21:45
PROVIDERS: ADMIT Nurse Practitioner Acute Care; ATTEND Internal Medicine
DX: A41.9 Sepsis, unspecified organism (principal); J96.21 Acute and chronic respiratory failure with hypoxia; I50.43 Acute on chronic combined systolic (congestive) and diastolic (congestive) heart failure; J18.9 Pneumonia, unspecified organism; Q21.1 Atrial septal defect; J98.11 Atelectasis; F41.9 Anxiety disorder, unspecified; Z20.828 Contact with and (suspected) exposure to other viral communicable diseases; B96.20 Unspecified Escherichia coli [E. coli] as the cause of diseases classified elsewhere; I27.21 Secondary pulmonary arterial hypertension; F15.10 Other stimulant abuse, uncomplicated; F17.210 Nicotine dependence, cigarettes, uncomplicated; I11.0 Hypertensive heart disease with heart failure; Z82.49 Family history of ischemic heart disease and other diseases of the circulatory system; Z79.899 Other long term (current) drug therapy; Z82.3 Family history of stroke; J02.0 Streptococcal pharyngitis; N30.90 Cystitis, unspecified without hematuria; J44.9 Chronic obstructive pulmonary disease, unspecified
CPT/HCPCS: 36415; 36600; 71045; 71250; 80048; 80053; 80307; 81001; 81025; 82728; 82805; 83605; 83615; 83735; 83880; 84443; 85025; 85379; 85610; 85730; 86141; 87040; 87086; 87088; 87186; 87426; 87804; 87880; 93005; 93306; 93970; 94640; 96365; 96366; G0378; J0696